=== PATIENT | female | born 1970 | race Asian ===

== ENCOUNTER 2022-03-09 06:53 | Day surgery (SDC) | payer BC, OTHER ==
[~2022-03-09] VITALS: Ht 165.1 cm; Wt 76.8 kg
[2022-03-09 07:19] VITALS: BP 102/75; PULSE 83; TEMP 97.3
[2022-03-09] MEDS ORDERED: SYNJARDY 12.5-1 EACH PO (07:26)
[2022-03-09] MEDS ORDERED: PHARMASSURE ZIN50 MG PO (07:26)
[2022-03-09] MEDS ORDERED: B-121000 MCG PO (07:27)
[2022-03-09] MEDS ORDERED: NATURAL IRON65 MG PO (07:27)
[2022-03-09] MEDS ORDERED: BIOTIN5000 MCG PO (07:27)
[2022-03-09] MEDS ORDERED: CELEXA40 MG PO (07:28)
[2022-03-09] MEDS ORDERED: NOVOLOG FLEX100 U/ML SQ (07:28)
[2022-03-09] MEDS ORDERED: VITAMIN D250 MCG PO (07:29)
[2022-03-09] MEDS ORDERED: OSCAL 500 TAB500 MG PO (07:29)
[2022-03-09] MEDS ORDERED: CRESTOR40 MG PO (07:29)
[2022-03-09] MEDS ORDERED: MELATONIN ER10 MG PO (07:30)
[2022-03-09] MEDS ORDERED: LEVEMIR100 U/ML SQ (07:30)
[2022-03-09 09:35] VITALS: BP 96/64; PULSE 78; TEMP 97.2
[2022-03-09 09:50] VITALS: BP 103/70; PULSE 77
[2022-03-09 10:05] VITALS: BP 114/69; PULSE 70
[2022-03-09 10:09] VITALS: BP 98/63; PULSE 73
--- NOTE | 2022-03-09 10:28 | NUR ---
0935 PT RETURNED TO BAY 5 VIA CART, TRANSFERED TO CHAIR 2 RN ASSIST. ALERT AND ORIENTED. MONITORS ATTACHED, INTERVALS AND ALARMS SET. PT DENIES DISCOMFORT. D5 & 1/2 NS RUNNING, COKE AND GRAM CRACKERS PROVIDED. NO BG NEEDED PER SITE WORKER. 0950 VSS. TOLERATING FOOD AND DRINK WELL. [address] HAS BEEN TO SPEAK WITH PT. REVIEWED DISCHARGE INSTRUCTIONS AND EDUCATION MATERIAL, ANSWERED ALL QUESTIONS. REMOVED IV WITHOUT COMPLICATIONS. PT ALLOWED TO DRESS. 1028 PT TRANSERED VIA WHEELCHAIR TO PERSONAL VEHICLE TO BE DRIVEN HOME BY .
== END 2022-03-09 10:28 | disposition home or self-care (01) ==
LOC: SDCO 06:53
DX: Z12.11 Encounter for screening for malignant neoplasm of colon (principal); D12.2 Benign neoplasm of ascending colon; Z80.0 Family history of malignant neoplasm of digestive organs
CPT/HCPCS: J2704; J3010